=== PATIENT | female | born 1960 | race Caucasian/White ===

== ENCOUNTER → 2016-05-15 | Outpatient (CLI) | payer OTHER ==
[~2016-05-15] MED LIST: ESTR0.1D TOP
--- NOTE | 2016-05-15 14:57 | DIAGNOSTIC IMAGING REPORT ---
ULTRASOUND RIGHT UPPER EXTREMITY VENOUS CLINICAL HISTORY: Right arm pain. COMPARISON STUDY: No priors. TECHNIQUE: Real-time, grayscale, and color Doppler sonography of the deep veins of the right upper extremity is performed. Compression and augmentation were utilized. FINDINGS: There is no sonographic evidence of deep venous thrombosis identified in the right upper extremity. The right internal jugular, axillary, and brachial veins are patent and normally compressible. Normal venous waveforms and augmentation are seen within the right subclavian vein. The cephalic and basilic veins are clear. The visualized radial and ulnar veins are patent. IMPRESSION: There is no sonographic evidence of deep venous thrombosis identified in the right upper extremity. Electronically signed by: Oliver Amaya M.D. 05/15/2016 2:56 PM Dictated Date/Time: 05/15/2016 2:55 PM
== END | disposition home or self-care (01) ==
LOC: C.ULTRBC 13:55
PROVIDERS: ATTEND Internal Medicine Geriatric Medicine
DX: M79.603 Pain in arm, unspecified (principal); R60.0 Localized edema

== ENCOUNTER → 2016-06-15 | Outpatient (CLI) | payer OTHER ==
--- NOTE | 2016-06-15 14:31 | DIAGNOSTIC IMAGING REPORT ---
CT HEAD WITHOUT CONTRAST (CT) CLINICAL HISTORY: R20.0 Right facial [id number] Headache COMPARISON STUDY: No previous studies for comparison. TECHNIQUE: Axial CT of the brain is performed from the vertex to the skull base. IV contrast was not administered for this examination. CT DOSE: 638.56 mGycm FINDINGS: No intra or extra-axial mass lesions are visualized. There is no CT evidence of acute cortical infarction. There is no evidence of midline shift. There is no acute hemorrhage. No calvarial fractures are visualized. There is no evidence of pathologic ventricular dilatation. There is opacification of a single right-sided ethmoid air cell. IMPRESSION: No acute intracranial findings Electronically signed by: Madhu Rivera M.D. 06/15/2016 2:29 PM Dictated Date/Time: 06/15/2016 2:28 PM
== END | disposition home or self-care (01) ==
LOC: C.CTS 13:24
PROVIDERS: ATTEND Family Medicine
DX: R51 Headache (principal); R20.0 Anesthesia of skin

== ENCOUNTER → 2017-02-02 | Day surgery (SDC) | payer OTHER ==
[2017-01-26 09:05] VITALS: BMI 33.0
[~2017-02-02] VITALS: Ht 167.6 cm; Wt 93.2 kg
[~2017-02-02] MED LIST changes: +LIDOCAINE HCL 2% 2 ML VIAL (20MG/ML) ONE; +MIDAZOLAM HCL 1 MG/ML 2ML VIAL ONE; +ONDANSETRON INJ 2 MG/ML 2 ML VIAL ONE; +PROPOFOL IV EMULSION 10 MG/ML 20 ML VIAL IV ONE
[2017-02-02 09:06] VITALS: Ht 167.6 cm; Wt 93.2 kg
--- NOTE | 2017-02-02 09:30 | Endo History and Physical ---
History & Physical Date of Service: Feb 02, 2017. Chief Complaint: SCREENING Referring Physician: AVA COBIAN History of Present Illness 56 yo CF who presents for screening colonoscopy. Past Surgical History Hx Cardiac Surgery: No Hx Internal Defibrillator: No Hx Pacemaker: No Hx Abdominal Surgery: Yes (HYSTERECTOMY, D&C'S, KERRI) Hx of Implantable Prosthesis: No Hx Post-Op Nausea and Vomiting: No Hx Cancer Surgery: No Hx Thoracic Surgery: No Hx Orthopedic: No Hx Urinary Tract Surgery: No Family History Colon CA, Polyp Social History Smoking Status: Never Smoker Hx Substance Use: No Hx Alcohol Use: Yes (OCCASIONALLY) Allergies Coded Allergies: No Known Allergies (Unverified , 02/02/17) Current Medications Reported Home Medications Medications Dose Route/Sig Max Daily Dose Days Date Category Vivelle-Dot (Estradiol) 0.1 Mg/24 Hr Dis 1 Patch TOP 2XWK 84 11/16/14 Reported Vital Signs Weight (Kilograms): 93.18 Height (Feet): 5 Height (Inches): 6 Date Time Temp Pulse Resp B/P (MAP) Pulse Ox O2 Delivery O2 Flow Rate FiO2 02/02/17 09:11 36.6 80 16 138/102 (114) 98 Room Air Physical Exam General Appearance: WD/WN, no apparent distress Respiratory/Chest: Auscultation: breath sounds normal Cardiovascular: Heart Auscultation: RRR Abdomen: Bowel Sounds: normal Inspection & Palpation: soft, non-distended, no tenderness, guarding & rebound Assessment and Plan Assessment: 56 yo CF who presents for screening colonoscopy. Plan: Proceed with colonoscopy.
--- NOTE | 2017-02-02 10:22 | GI REPORT ---
Procedure Date: 02/02/2017 9:16 AM Procedure: Colonoscopy Indications: Screening for colorectal malignant neoplasm Medicines: Monitored Anesthesia Care Complications: No immediate complications. Estimated Blood Loss: Estimated blood loss: none. Procedure: Pre-Anesthesia Assessment: - Prior to the procedure, a History and Physical was performed, and patient medications and allergies were reviewed. The patient's tolerance of previous anesthesia was also reviewed. The risks and benefits of the procedure and the sedation options and risks were discussed with the patient. All questions were answered, and informed consent was obtained. Prior Anticoagulants: The patient has taken no previous anticoagulant or antiplatelet agents. ASA Grade Assessment: II - A patient with mild systemic disease. After reviewing the risks and benefits, the patient was deemed in satisfactory condition to undergo the procedure. After I obtained informed consent, the scope was passed under direct vision. Throughout the procedure, the patient's blood pressure, pulse, and oxygen saturations were monitored continuously. The scope was introduced through the anus and advanced to the terminal ileum. The scope was introduced through the and advanced to. The colonoscopy was unusually difficult due to post-surgical anatomy and restricted mobility of the colon. Successful completion of the procedure was aided by changing the patient to a supine position and withdrawing the scope and replacing with the pediatric colonoscope. The patient tolerated the procedure fairly well. The quality of the bowel preparation was good. The terminal ileum, ileocecal valve, appendiceal orifice, and rectum were photographed. Findings: The perianal and digital rectal examinations were normal. A 4 mm polyp was found in the sigmoid colon. The polyp was sessile. The polyp was removed with a cold snare. Resection and retrieval were complete. Non-bleeding internal hemorrhoids were found during retroflexion. The hemorrhoids were small. Impression: - One 4 mm polyp in the sigmoid colon, removed with a cold snare. Resected and retrieved. - Non-bleeding internal hemorrhoids. Recommendation: - Resume previous diet. - Continue present medications. - Repeat colonoscopy for surveillance based on pathology results. - Return to primary care physician as previously scheduled. Elmer Chaney DO 02/02/2017 10:21:52 AM This report has been signed electronically. Note Initiated On: 02/02/2017 9:16 AM I attest to the content of the Intraoperative Record and orders documented therein, exceptions below
--- NOTE | 2017-02-02 10:25 | Discharge Instructions ---
Endoscopy Patient Instructions Date / Procedure(s) Performed Feb 02, 2017. Colonoscopy Allergy Information Coded Allergies: No Known Allergies (Unverified , 02/02/17) Discharge Date / Findings Feb 02, 2017. Colon polyp Internal hemorrhoids Medication Instructions OK to resume all medications today as prescribed Reported Home Medications Medications Dose Route/Sig Max Daily Dose Days Date Category Vivelle-Dot (Estradiol) 0.1 Mg/24 Hr Dis 1 Patch TOP 2XWK 84 11/16/14 Reported Provider Instructions Activity Restrictions - No exercising or heavy lifting for 24 hours. - Do not drink alcohol the day of the procedure. - Do not drive a car or operate machinery until the day after the procedure. - Do not make any important decisions or sign important papers in 24 hours after the procedure. Following Day: - Return to full activity which may include returning to work/school. Diet Start your diet with liquids and light foods (jello, soup, juice, toast). Then eat your usual diet if not nauseated. Treatment For Common After Affects For mild abdominal pain, bloating, or excessive gas: - Rest - Eat lightly - Lie on right side Follow-Up Information Follow-up with AVA COBIAN as scheduled Anesthesia Information What You Should Know You have had a procedure that required some medicine to reduce anxiety and discomfort. This treatment is called moderate sedation. After receiving the treatment, you may be sleepy, but you will be able to breathe on your own. The effects of the treatment may last for several hours. Follow these instructions along with Activity/Diet recommendations noted above: * Do NOT do anything where dizziness or clumsiness would be dangerous. * Rest quietly at home today, then you can be up and about tomorrow. * Have a responsible person stay with you the rest of today. * You may have had an I.V. today. If so, you may take the dressing off later today. Recommendations Call your doctor if: * Trouble breathing * Continuous vomiting for more than 24 hours * Temperature above 101 degrees * Severe abdominal pain or bloating * Pain not relieved by pain medicine ordered * There is increased drainage or redness from any incision * A large amount of rectal bleeding greater than 2-3 tablespoons. (If you had a polyp/s removed or have hemorrhoids, a small amount of blood - from the rectum is to be expected.) * You have any unanswered questions or concerns. IN THE EVENT OF A SERIOUS EMERGENCY, GO TO THE NEAREST EMERGENCY ROOM Your discharge instructions were prepared by provider Elmer Chaney. Patient Instructions Signature Page Ban Whittaker Patient (or Guardian) Signature/Date: I have read and understand the instructions given to me by my caregivers. Caregiver/RN/Doctor Signature/Date: The above-named patient and/or guardian has received patient instructions on this date. + Original Patient Signature Page (only) stays with chart. Please make copy for patient.
--- NOTE | 2017-02-02 10:37 | Anesthesiology Progress Note ---
Anesthesia Post Op Note Date & Time Feb 02, 2017 at 10:37 Vital Signs Pain Intensity: 4 Vital Signs Past 12 Hours Date Time Temp Pulse Resp B/P (MAP) Pulse Ox O2 Delivery O2 Flow Rate FiO2 02/02/17 10:30 73 18 130/90 (103) 95 Room Air 02/02/17 10:16 76 16 135/88 (104) 95 Room Air 02/02/17 09:11 36.6 80 16 138/102 (114) 98 Room Air Notes Mental Status: alert / awake / arousable, participated in evaluation Pt Amnestic to Procedure: Yes Nausea / Vomiting: adequately controlled Pain: adequately controlled Airway Patency, RR, SpO2: stable & adequate BP & HR: stable & adequate Hydration State: stable & adequate Anesthetic Complications: no major complications apparent
[2017-02-02 10:45] VITALS: BP 147/92; PULSE 67; O2SAT 95
== END | disposition home or self-care (01) ==
LOC: C.GI 08:53
PROVIDERS: ATTEND Internal Medicine
DX: Z12.11 Encounter for screening for malignant neoplasm of colon (principal); D12.5 Benign neoplasm of sigmoid colon; I10 Essential (primary) hypertension; K64.8 Other hemorrhoids; E66.9 Obesity, unspecified; Z90.710 Acquired absence of both cervix and uterus; Z90.49 Acquired absence of other specified parts of digestive tract; Z68.33 Body mass index [BMI] 33.0-33.9, adult; Z80.0 Family history of malignant neoplasm of digestive organs

== ENCOUNTER → 2017-06-26 | Outpatient (CLI) | payer OTHER ==
[~2017-06-26] MED LIST changes: -LIDOCAINE HCL 2% 2 ML VIAL (20MG/ML) ONE; -MIDAZOLAM HCL 1 MG/ML 2ML VIAL ONE; -ONDANSETRON INJ 2 MG/ML 2 ML VIAL ONE; -PROPOFOL IV EMULSION 10 MG/ML 20 ML VIAL IV ONE
[2017-06-26 11:00] LABS: BASO % 0.8 %; BASO ABS # 0.04 K/uL (0-0.2); EOS % 2.7 %; EOS ABS # 0.14 K/uL (0-0.5); HEMATOCRIT 46.1 % (37-47); HEMOGLOBIN 15.8 g/dL (12.0-16.0); IG# 0.01 K/uL (0.00-0.02); LYMPH % 38.5 %; LYMPH ABS # 2.01 K/uL (1.2-3.4); MEAN CELL VOLUME 87.1 fL (80-100); MEAN CORPUSCULAR HEMOGLOBIN 29.9 pg (25-34); MEAN CORPUSCULAR HGB CONC 34.3 g/dl (32-36); MONO % 7.3 %; MONO ABS # 0.38 K/uL (0.11-0.59); NEUT % 50.5 %; NEUT ABS # 2.64 K/uL (1.4-6.5); PLATELET COUNT 231 K/uL (130-400); RED CELL DISTRIBUTION WIDTH CV 12.8 % (11.5-14.5); RED CELL DISTRIBUTION WIDTH SD 41.1 fL (36.4-46.3); WHITE BLOOD COUNT 5.22 K/uL (4.8-10.8)
[2017-06-26 11:20] LABS: HEMOGLOBIN A1C 5.5 % (4.5-5.6)
[2017-06-26 11:45] LABS: ALBUMIN 3.8 gm/dl (3.4-5.0); ALT/SGPT 43 U/L (12-78); AST/SGOT 26 U/L (15-37); BLOOD UREA NITROGEN 14 mg/dl (7-18); CARBON DIOXIDE 26 mmol/L (21-32); CREATININE 0.94 mg/dl (0.60-1.20); GLUCOSE 106 mg/dl (70-99); POTASSIUM 4.2 mmol/L (3.5-5.1); SODIUM 139 mmol/L (136-145)
[2017-06-26 11:55] LABS: ALKALINE PHOSPHATASE 82 U/L (45-117); CHOLESTEROL 181 mg/dl (0-200); LDL CHOLESTEROL CALCULATED 93 mg/dl; TOTAL PROTEIN 7.6 gm/dl (6.4-8.2)
== END | disposition home or self-care (01) ==
LOC: C.LABBC 08:57
PROVIDERS: ATTEND Internal Medicine
DX: E78.1 Pure hyperglyceridemia (principal); R20.2 Paresthesia of skin; R44.8 Other symptoms and signs involving general sensations and perceptions; R03.0 Elevated blood-pressure reading, without diagnosis of hypertension

== ENCOUNTER 2017-06-30 11:00 | Emergency (ER) | payer OTHER ==
[~2017-06-30] VITALS: Ht 167.6 cm; Wt 113.5 kg
[2017-06-30 11:13] VITALS: TEMP 36.5; Ht 167.6 cm; Wt 113.5 kg
--- NOTE | 2017-06-30 11:29 | EMERGENCY ROOM VISIT NOTE ---
History Report prepared by Collin: Calvin Reid Under the Supervision of: Dr. Joseluis Major D.O. First contact with patient: 11:16 Chief Complaint: REFERRED BY DOCTOR Stated Complaint: NUMBNESS ON TONGUE,FOOT REFERRED BY DOCTOR History of Present Illness The patient is a 56 year old female who presents to the Emergency Room with complaints of constant numbness on the right side of her tongue and the bottom of her left foot for the past week. She states that she saw Dr. Chanel recently who told her to call back if she had changes in her symptoms. Patient states that the tongue numbness has improved but the bottom of the left foot has stayed the same. She states that today her left cheek became numb. She adds that she has pain in her left upper arm. Patient states that she went to Urgent Care prior to arrival at the ER. She states that they recommended she go to the ER for to get a neck doppler and look for a possible TIA. She denies a history of blood clots in her lungs and legs. She denies any difficulty walking. Patient states that she has high blood pressure. She states that she does not take medication for it. She adds that she takes a hormone replacement medication. Pertinent past surgical history includes a cholecystectomy and complete hysterectomy. Patient denies headaches, rashes, nausea, and vomiting. Patient denies smokes but states that she occasionally uses alcohol. Source of History: patient Onset: 1 week ago Position: tongue (Right side), foot (left), other (Left cheek) Timing: constant Modifying Factors (Relieving): other (None) Associated Symptoms: No headache, No nausea, No vomiting, No rash Review of Systems See HPI for pertinent positives & negatives. A total of 10 systems reviewed and were otherwise negative. Past Medical & Surgical Medical Problems: (1) High blood pressure Surgical Problems: (1) Hx of cholecystectomy (2) Hx of cholecystectomy (3) Hx of hysterectomy (4) S/P complete hysterectomy Family History Cancer Hypertension Social History Smoking Status: Never Smoker Alcohol Use: occasionally Marital Status: Housing Status: lives with family Occupation Status: retired Current/Historical Medications Scheduled Estradiol (Vivelle-Dot), 1 PATCH TOP 2XWK Allergies Coded Allergies: No Known Allergies (Unverified , 06/30/17) Physical Exam Vital Signs Date Time Temp Pulse Resp B/P (MAP) Pulse Ox O2 Delivery O2 Flow Rate FiO2 06/30/17 12:59 67 18 159/95 96 Room Air 06/30/17 12:21 65 06/30/17 11:34 98 Room Air 06/30/17 11:13 36.5 75 18 202/125 98 Room Air Physical Exam GENERAL: Patient is awake, alert, and in no acute distress. Patient is resting comfortably and showing no signs of anxiety EYES: The conjunctivae are clear. The pupils are round and reactive. EARS, NOSE, MOUTH AND THROAT: The nose is without any evidence of any deformity. Mucous membranes are moist tongue is midline NECK: The neck is nontender and supple. RESPIRATORY: Normal respiratory effort is noted there is no evidence of wheezing rhonchi or rales CARDIOVASCULAR: Regular rate and rhythm noted there no murmurs rubs or gallops normal S1 normal S2 GASTROINTESTINAL: The abdomen is soft. Bowel sounds are present in all quadrants. Abdomen is nontender MUSCULOSKELETAL/EXTREMITIES: There is no evidence of gross deformity full range of motion is noted in the hips and shoulders SKIN: There is no obvious evidence of any rash. There are no petechiae, pallor or cyanosis noted. NEUROLOGIC: Patient is awake alert and oriented x3 strength is symmetric patellar reflexes are 2+ bilaterally. Light touch was symmetric over the LLE as well as the face. Operations Intelligence Superintendent strength was symmetric. Medical Decision & Procedures ER Provider Diagnostic Interpretation: Radiology results as stated below per my review and radiologist interpretation: CHEST ONE VIEW PORTABLE CLINICAL HISTORY: 56 years-old Female presenting with EVALUATE ALTERED MENTAL STATUS/WEAKNESS. TECHNIQUE: Portable upright AP view of the chest was obtained. COMPARISON: 11/26/2015. FINDINGS: Cardiomediastinal silhouette normal. No focal opacity. No large effusion or pneumothorax. Osseous structures normal. Upper abdomen normal. IMPRESSION: 1. No acute cardiopulmonary disease. Electronically signed by: Jesse Carrasquillo M.D. 06/30/2017 11:53 AM HEAD WITHOUT CONTRAST (CT) CLINICAL HISTORY: 56 years-old Female presenting with EVALUATE ALTERED MENTAL STATUS/WEAKNESS. TECHNIQUE: Multidetector CT imaging of the head was performed without the use of intravenous contrast. IV contrast: None. A dose lowering technique was used consistent with the principles of ALARA (as low as reasonably achievable). COMPARISON: 06/15/2016. CT DOSE (mGy.cm): The estimated cumulative dose is 614.27 mGy.cm. FINDINGS: Interpretive Naturalist topogram: Unremarkable. Ventricles and sulci normal in size. Brain parenchyma normal in appearance with preserved recinos-white differentiation. No mass effect or midline shift. No hemorrhage or acute territorial infarct. No extra-axial fluid collection. Paranasal sinuses and mastoid air cells clear. Calvarium intact. IMPRESSION: 1. No acute intracranial abnormality. Electronically signed by: Jesse Carrasquillo M.D. 06/30/2017 12:18 PM Laboratory Results 06/30/17 11:46 Red Blood Count 5.29, Mean Corpuscular Volume 86.8, Mean Corpuscular Hemoglobin 30.2, Mean Corpuscular Hemoglobin Concent 34.9, Mean Platelet Volume 10.5, Neutrophils (%) (Auto) 53.4, Lymphocytes (%) (Auto) 36.6, Monocytes (%) (Auto) 7.7, Eosinophils (%) (Auto) 1.3, Basophils (%) (Auto) 0.7, Neutrophils # (Auto) 3.21, Lymphocytes # (Auto) 2.20, Monocytes # (Auto) 0.46, Eosinophils # (Auto) 0.08, Basophils # (Auto) 0.04 06/30/17 11:46 Test 06/30/17 11:30 06/30/17 11:46 Urine Color YELLOW Urine Appearance CLEAR (CLEAR) Urine pH 5.0 (4.5-7.5) Urine Specific [place] 1.013 (1.000-1.030) Urine Protein NEG (NEG) Urine Glucose (UA) NEG (NEG) Urine Ketones NEG (NEG) Urine Occult Blood NEG (NEG) Urine Nitrite NEG (NEG) Urine Bilirubin NEG (NEG) Urine Urobilinogen NEG (NEG) Urine Leukocyte Esterase NEG (NEG) White Blood Count 6.01 K/uL (4.8-10.8) Red Blood Count 5.29 M/uL (4.2-5.4) Hemoglobin 16.0 g/dL (12.0-16.0) Hematocrit 45.9 % (37-47) Mean Corpuscular Volume 86.8 fL (80-100) Mean Corpuscular Hemoglobin 30.2 pg (25-34) Mean Corpuscular Hemoglobin Concent 34.9 g/dl (32-36) Platelet Count 213 K/uL (130-400) Mean Platelet Volume 10.5 fL (7.4-10.4) Neutrophils (%) (Auto) 53.4 % Lymphocytes (%) (Auto) 36.6 % Monocytes (%) (Auto) 7.7 % Eosinophils (%) (Auto) 1.3 % Basophils (%) (Auto) 0.7 % Neutrophils # (Auto) 3.21 K/uL (1.4-6.5) Lymphocytes # (Auto) 2.20 K/uL (1.2-3.4) Monocytes # (Auto) 0.46 K/uL (0.11-0.59) Eosinophils # (Auto) 0.08 K/uL (0-0.5) Basophils # (Auto) 0.04 K/uL (0-0.2) RDW Standard Deviation 40.5 fL (36.4-46.3) RDW Coefficient of Variation 12.7 % (11.5-14.5) Immature Granulocyte % (Auto) 0.3 % Immature Granulocyte # (Auto) 0.02 K/uL (0.00-0.02) Prothrombin Time 10.4 SECONDS (9.0-12.0) Prothromb Time International Ratio 1.0 (0.9-1.1) Activated Partial Thromboplast Time 28.8 SECONDS (21.0-31.0) Partial Thromboplastin Ratio 1.1 Anion Gap 5.0 mmol/L (3-11) Est Creatinine Clear Calc Drug Dose 91.2 ml/min Estimated GFR () 85.7 Estimated GFR (Non- 74.0 BUN/Creatinine Ratio 14.6 (10-20) Calcium Level 9.1 mg/dl (8.5-10.1) Magnesium Level 1.9 mg/dl (1.8-2.4) Total Bilirubin 0.6 mg/dl (0.2-1) Direct Bilirubin 0.2 mg/dl (0-0.2) Aspartate Amino Transf (AST/SGOT) 22 U/L (15-37) Alanine Aminotransferase (ALT/SGPT) 40 U/L (12-78) Alkaline Phosphatase 81 U/L (45-117) Troponin I < 0.015 ng/ml (0-0.045) Total Protein 7.9 gm/dl (6.4-8.2) Albumin 3.9 gm/dl (3.4-5.0) Thyroid Stimulating Hormone (TSH) 1.490 uIu/ml (0.300-4.500) Laboratory results per my review. ECG Per My Interpretation Indication: weakness Rate (beats per minute): 60 Rhythm: normal sinus Findings: no ectopy, other (No acute ST segments) Comparison ECG Date: 11/16/14 Change: no significant change ED Course 1121: The patient was evaluated in room B2. A complete history and physical examination were performed. 1301: Upon reevaluation, the patient is resting comfortably. I discussed the results and treatment plan with her. She verbalized agreement of the treatment plan. She was discharged home. Medical Decision Prior records/ancillary studies reviewed and summarized above. Nursing notes reviewed. Differential diagnosis: Etiologies such as metabolic, infection, hypo/hyperglycemia, electrolyte abnormalities, cardiac sources, intracerebral event, toxicologic, neurologic, as well as others were entertained. The patient is a 56-year-old female who presented to the emergency department for a neurologic problem. The patient had no focal neurologic deficit. She complained of subjective numbness on the heel of the left foot as well as the left side of the face. She also complained of numbness over the right side of the tongue. She had no facial drooping. The patient was seen by her primary care physician and sent to the emergency department for further evaluation. I discussed the patient's laboratory and radiographic studies with her. She was encouraged to follow-up with her primary care physician for further evaluation including MRI of the brain carotid Doppler as well as echocardiogram. She is also encouraged to start taking a baby aspirin a day and return to the emergency department immediately if symptoms change worsen or the need arises. Medication Reconcilliation Current Medication List: was personally reviewed by me Blood Pressure Screening Patient's blood pressure: Elevated blood pressure Blood pressure disposition: Elevated BP felt to be situational Impression Primary Impression: TIA (transient ischemic attack) Scribe Attestation The scribe's documentation has been prepared under my direction and personally reviewed by me in its entirety. I confirm that the note above accurately reflects all work, treatment, procedures, and medical decision making performed by me. Departure Information Dispostion Home / Self-Care Referrals No Doctor, Assigned (PCP) Forms HOME CARE DOCUMENTATION FORM, IMPORTANT VISIT INFORMATION, WORK / SCHOOL INSTRUCTIONS Patient Instructions My [facility], TIA Additional Instructions Continue all medications as prescribed. Rest and avoid any strenuous activity. Return to the emergency department immediately if symptoms change worsen or the need arise. Consider starting to take a baby aspirin every morning. I would recommend follow up studies with your family doctor as well as discussion for further studies such as MRI of the brain echocardiogram and carotid Dopplers to further evaluate the cause your symptoms.
[2017-06-30 11:34] VITALS: O2SAT 98
--- NOTE | 2017-06-30 11:55 | DIAGNOSTIC IMAGING REPORT ---
CHEST ONE VIEW PORTABLE CLINICAL HISTORY: 56 years-old Female presenting with EVALUATE ALTERED MENTAL STATUS/WEAKNESS. TECHNIQUE: Portable upright AP view of the chest was obtained. COMPARISON: 11/26/2015. FINDINGS: Cardiomediastinal silhouette normal. No focal opacity. No large effusion or pneumothorax. Osseous structures normal. Upper abdomen normal. IMPRESSION: 1. No acute cardiopulmonary disease. Electronically signed by: Jesse Carrasquillo M.D. 06/30/2017 11:53 AM Dictated Date/Time: 06/30/2017 11:53 AM
[2017-06-30 12:01] LABS: BASO % 0.7 %; BASO ABS # 0.04 K/uL (0-0.2); EOS % 1.3 %; EOS ABS # 0.08 K/uL (0-0.5); HEMATOCRIT 45.9 % (37-47); IG# 0.02 K/uL (0.00-0.02); LYMPH % 36.6 %; MEAN CELL VOLUME 86.8 fL (80-100); MEAN CORPUSCULAR HEMOGLOBIN 30.2 pg (25-34); MEAN CORPUSCULAR HGB CONC 34.9 g/dl (32-36); MEAN PLATELET VOLUME 10.5 fL (7.4-10.4); MONO % 7.7 %; MONO ABS # 0.46 K/uL (0.11-0.59); NEUT % 53.4 %; NEUT ABS # 3.21 K/uL (1.4-6.5); PLATELET COUNT 213 K/uL (130-400); RED CELL DISTRIBUTION WIDTH CV 12.7 % (11.5-14.5); RED CELL DISTRIBUTION WIDTH SD 40.5 fL (36.4-46.3); WHITE BLOOD COUNT 6.01 K/uL (4.8-10.8)
[2017-06-30 12:09] LABS: PTT PATIENT 28.8 SECONDS (21.0-31.0)
[2017-06-30 12:17] LABS: ALBUMIN 3.9 gm/dl (3.4-5.0); ALT/SGPT 40 U/L (12-78); AST/SGOT 22 U/L (15-37); BLOOD UREA NITROGEN 13 mg/dl (7-18); CALCIUM 9.1 mg/dl (8.5-10.1); CARBON DIOXIDE 27 mmol/L (21-32); CREATININE 0.87 mg/dl (0.60-1.20); GLUCOSE 98 mg/dl (70-99); POTASSIUM 4.1 mmol/L (3.5-5.1); SODIUM 139 mmol/L (136-145)
--- NOTE | 2017-06-30 12:19 | DIAGNOSTIC IMAGING REPORT ---
HEAD WITHOUT CONTRAST (CT) CLINICAL HISTORY: 56 years-old Female presenting with EVALUATE ALTERED MENTAL STATUS/WEAKNESS. TECHNIQUE: Multidetector CT imaging of the head was performed without the use of intravenous contrast. IV contrast: None. A dose lowering technique was used consistent with the principles of ALARA (as low as reasonably achievable). COMPARISON: 06/15/2016. CT DOSE (mGy.cm): The estimated cumulative dose is 614.27 mGy.cm. FINDINGS: Mds Coordinator topogram: Unremarkable. Ventricles and sulci normal in size. Brain parenchyma normal in appearance with preserved recinos-white differentiation. No mass effect or midline shift. No hemorrhage or acute territorial infarct. No extra-axial fluid collection. Paranasal sinuses and mastoid air cells clear. Calvarium intact. IMPRESSION: 1. No acute intracranial abnormality. Electronically signed by: Jesse Carrasquillo M.D. 06/30/2017 12:18 PM Dictated Date/Time: 06/30/2017 12:16 PM
[2017-06-30 12:28] LABS: ALKALINE PHOSPHATASE 81 U/L (45-117); TOTAL PROTEIN 7.9 gm/dl (6.4-8.2)
[2017-06-30 12:59] VITALS: BP 159/95; PULSE 67; O2SAT 96
== END 2017-06-30 13:23 | disposition home or self-care (01) ==
LOC: C.EDB 11:01
DX: G45.9 Transient cerebral ischemic attack, unspecified (principal); R20.0 Anesthesia of skin; I10 Essential (primary) hypertension; Z79.899 Other long term (current) drug therapy

== ENCOUNTER → 2017-07-04 | Outpatient (CLI) | payer OTHER | END | disposition home or self-care (01) | LOC: C.LABBC 14:41 | PROVIDERS: ATTEND Internal Medicine | DX: R20.0 Anesthesia of skin (principal); R20.2 Paresthesia of skin; R44.8 Other symptoms and signs involving general sensations and perceptions; R42 Dizziness and giddiness; I63.9 Cerebral infarction, unspecified ==

== ENCOUNTER → 2017-07-12 | Outpatient (CLI) | payer OTHER ==
[~2017-07-12] MED LIST changes: +GADAVIST IV PRN
--- NOTE | 2017-07-12 09:43 | DIAGNOSTIC IMAGING REPORT ---
MRI OF THE BRAIN WITHOUT AND WITH IV CONTRAST CLINICAL HISTORY: R20.0 R20.2 R44.8 I63.9 LEFT FOOT AND RIGHT TONGUE PARESTHESIAS. LEFT BASAL NUMBNESS. COMPARISON STUDY: Noncontrast head CT dated 06/30/2017 TECHNIQUE: MRI of the brain was performed from the vertex to the skull base utilizing various T1 and T2 weighted sequences. Following the IV administration of 11 mL of Gadavist contrast, additional enhanced images were obtained. FINDINGS: Sagittal T1, axial diffusion, proton density and T2 weighted axial, coronal FLAIR, and pre and post axial T1-weighted images were acquired. These were supplemented with post gadolinium coronal T1 weighted images. No intra or extra-axial mass lesions are visualized. Axial diffusion-weighted images reveal no evidence of acute or subacute infarction. There is no evidence of ventricular dilatation. Proton density T2-weighted and FLAIR images reveal scattered foci of increased T2 signal within the white matter, likely on a small vessel basis. There are no abnormal flow voids. Minimal inflammatory changes are suspected within the right mastoid. There is no evidence of pathologic enhancement. IMPRESSION: 1. No acute intracranial findings 2. No evidence of acute or subacute infarction 3. No evidence of intracranial mass 4. Minor foci of increased T2 signal within the white matter, likely on a small vessel basis Electronically signed by: Madhu Rivera M.D. 07/12/2017 9:42 AM Dictated Date/Time: 07/12/2017 9:40 AM
== END | disposition home or self-care (01) ==
LOC: C.MRIBC 08:32
PROVIDERS: ATTEND Internal Medicine
DX: I63.9 Cerebral infarction, unspecified (principal); R44.8 Other symptoms and signs involving general sensations and perceptions; R20.0 Anesthesia of skin; R20.2 Paresthesia of skin